=== PATIENT | female | born 1995 | race Caucasian/White ===

== ENCOUNTER 2021-05-08 19:17 | Emergency (ER) | payer MEDICAID ==
[~2021-05-08] VITALS: Ht 157.5 cm; Wt 52.0 kg
[2021-05-08 19:56] VITALS: BP 118/65
[2021-05-08] MEDS ORDERED: ACETAMINOPHEN 325MG TABLET PO ONE (20:30)
== END 2021-05-08 22:09 | disposition home or self-care (01) ==
LOC: ER 19:17
DX: F45.8 Other somatoform disorders (principal)
CPT/HCPCS: 99283